=== PATIENT | female | born 1985 | race Caucasian/White ===

== ENCOUNTER 2024-02-24 10:31 | Day surgery (SDC) | payer BC ==
[2024-02-24 10:52] VITALS: TEMP 97.7
[2024-02-24] MEDS: LACTATED RINGERS 1,000 ML IV SCH (11:00)
[2024-02-24] MEDS: IV FLUID CONTINUATION 1,000 ML IV ONE (11:01)
[2024-02-24] MEDS ORDERED: LIDOCAINE 1% INJ 10MG/ML (20 ML MDV) ONE (11:40)
[2024-02-24] MEDS ORDERED: PROPOFOL 10 MG/ML 20 ML VIAL IV ONE (11:40)
--- NOTE | 2024-02-24 11:47 | P.PCN ---
Date of Procedure: 02/24/24 Procedure(s) Performed: BRIEF HISTORY: Patient is a 38-year-old, pleasant, white female scheduled for an upper endoscopy as a part evaluation of chronic epigastric pain with associated intermittent nausea vomiting since August of this year.. PROCEDURE PERFORMED: Esophagogastroduodenoscopy with biopsy. PREOPERATIVE DIAGNOSIS: Epigastric pain/intermittent nausea vomit. IV sedation per anesthesia. PROCEDURE: After informed consent was obtained, the patient was brought into the endoscopy unit. IV sedation was administered by Anesthesia under continuous monitoring. Initially the Olympus GIF-140 video endoscope was inserted into the mouth. Esophagus intubated without any difficulty. It was gradually advanced into the stomach and duodenum and carefully examined. The bulb and the second part of the duodenum appeared normal. The scope at this time was withdrawn to the stomach, adequately insufflated with air, and upon careful examination, mucosa of the antrum, had mild gastritis and biopsies were done from this area. Mucosa of the body, cardia and the fundus appeared normal. The scope was then withdrawn into the esophagus. Small hiatal hernia noted. The GE junction was located at 39 cm from the incisors. The esophagus appeared normal. There were no erosions or ulcerations seen, biopsies were done from the distal esophagus and the patient tolerated the procedure well. IMPRESSION: 1. Mild antral gastritis. 2. Hiatal hernia but no evidence of esophagitis. RECOMMENDATIONS: The findings of this examination were discussed with the patient as well as her family. She was advised to follow-up with the biopsy results. Will continue Protonix 40 mg daily and follow antireflux measures with an office in 2 weeks.
[2024-02-24 11:55] VITALS: RESP 16
[2024-02-24 12:15] VITALS: BP 111/72; PULSE 65
== END 2024-02-24 12:39 | disposition home or self-care (01) ==
LOC: ORWHC2ENDO 10:31
PROVIDERS: ATTEND Internal Medicine Gastroenterology
DX: K29.50 Unspecified chronic gastritis without bleeding (principal); K20.90 Esophagitis, unspecified without bleeding; K44.9 Diaphragmatic hernia without obstruction or gangrene
CPT/HCPCS: 81025; 88305; 43239; J2001; J2704